=== PATIENT | female | born 1965 | race Caucasian/White ===

== ENCOUNTER 2025-01-21 15:31 | Emergency (ER) | payer MEDICAID ==
[~2025-01-21] VITALS: Ht 175.3 cm; Wt 102.1 kg
[2025-01-21 15:50] VITALS: TEMP 98.1
[2025-01-21] MEDS ORDERED: ACETAMINOPHEN 325 MG TABLET ONE (16:08)
[2025-01-21] MEDS: ACETAMINOPHEN 325 MG TABLET PO ONE (16:12)
[2025-01-21] MEDS ORDERED: TDAP [DIPH/PERTUSSIS/TET] 0.5 ML VIAL IM ONE (20:29)
[2025-01-21] MEDS: TDAP [DIPH/PERTUSSIS/TET] 0.5 ML VIAL IM ONE (20:30)
[2025-01-21 20:57] VITALS: BP 138/87; O2SAT 98
== END 2025-01-21 20:45 | disposition home or self-care (01) ==
LOC: ER 15:45
DX: S91.311A Laceration without foreign body, right foot, initial encounter (principal); M25.511 Pain in right shoulder; M25.512 Pain in left shoulder; M25.571 Pain in right ankle and joints of right foot; R10.2 Pelvic and perineal pain; I10 Essential (primary) hypertension; V43.52XA Car driver injured in collision with other type car in traffic accident, initial encounter; Y93.89 Activity, other specified; Y92.488 Other paved roadways as the place of occurrence of the external cause; Y99.8 Other external cause status
CPT/HCPCS: 12001; 72170; 73030; 73610; 73630; 90471; 90715; 99284; A6403

== ENCOUNTER 2025-02-01 10:55 | Emergency (ER) | payer MEDICAID ==
[~2025-02-01] VITALS: Ht 175.3 cm; Wt 90.7 kg
[2025-02-01 11:07] VITALS: BP 113/81; TEMP 98.4
[2025-02-01 11:30] VITALS: O2SAT 99
== END 2025-02-01 11:30 | disposition home or self-care (01) ==
LOC: ER 10:57
DX: S91.312D Laceration without foreign body, left foot, subsequent encounter (principal); Z48.00 Encounter for change or removal of nonsurgical wound dressing; I10 Essential (primary) hypertension; X58.XXXD Exposure to other specified factors, subsequent encounter